=== PATIENT | female | born 1955 | race Caucasian/White ===

== ENCOUNTER → 2016-12-25 | Outpatient (CLI) | payer BC, OTHER ==
--- NOTE | 2016-12-25 09:08 | REPMRS ---
Patient History The patient states she had a clinical breast exam in March 2016. Patient is postmenopausal. Family history of unknown cancer in paternal grandfather at age 50 or over. Took hormonal contraceptives for 5 years. Digital Mammo Screening Bilat: December 25, 2016 - Exam #: [id number] Bilateral CC and MLO view(s) were taken. Technologist: Agustina Busch, Technologist Prior study comparison: March 02, 2014, bilateral bilat screen digital mammo, performed at [facility] ([facility]). August 13, 2011, bilateral bilat screen digital mammo, performed at [facility] ([facility]). June 24, 2010, bilateral screening mammogram, performed at [facility] ([facility]). FINDINGS: There are scattered fibroglandular densities. There has been no change in the appearance of the mammogram from the prior studies. There is a mild amount of scattered fibroglandular density which is fairly symmetric. There is no interval development of dominant mass, architectural distortion, or clustered microcalcification suggestive of malignancy. ASSESSMENT: BI-RADS/ACR category 1 mammogram. Negative. Recommendation Routine screening mammogram in 1 year (for women over age 40). This mammogram was interpreted with the aid of an FDA-approved computer-aided dectection system. Electronically Signed By: Pradip Frances MD 12/25/16 [id number]
== END ==
LOC: M RAD 08:29
PROVIDERS: ATTEND Obstetrics & Gynecology
DX: Z12.31 Encounter for screening mammogram for malignant neoplasm of breast (principal); Z92.0 Personal history of contraception

== ENCOUNTER → 2018-02-28 | Outpatient (CLI) | payer BC, OTHER | LOC: M RAD 10:08 | DX: Z12.31 Encounter for screening mammogram for malignant neoplasm of breast (principal); Z92.0 Personal history of contraception | CPT/HCPCS: 77067 ==